=== PATIENT | female | born 1960 | race Caucasian/White ===

== ENCOUNTER 2023-07-01 11:59 | Outpatient (AMB) | payer OTHER, SELFPAY ==
--- NOTE | 2023-07-01 12:57 | MHC.OFFWIV ---
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 Pt states she has been feeling this way for one week. Patient Tobacco Use Status: Never used Tobacco Allergies No Known Allergies Allergy (Verified 07/01/23 13:02) Do you need a note to return to daycare/school/sports/work: No HPI HPI Comments History of Present Illness Details 63-year-old female presents for or upper respiratory symptoms. Patient is patient states that she is starting to feel better but has and lingering upper respiratory symptoms include cough and excessive mucus production. Denies any chest pain shortness of breath fever abdominal pain nausea or vomiting. PFSH Social History Patient Tobacco Use Status: Never used Tobacco Review of Systems Resp Reports cough and Reports excessive phlegm production Physical Exam Vital Signs: Last Vital Signs Temp 97.8 F 07/01/23 13:02 Pulse 92 07/01/23 13:02 BP 146/72 H 07/01/23 13:02 Pulse Ox 96 07/01/23 13:02 Oxygen Delivery Method Room Air 07/01/23 13:02 Const General: cooperative, no acute distress and alert Orientation/consciousness: patient oriented x3 Limitations: no limitations HEENT Head: Yes normal to inspection Ears: hearing grossly normal bilaterally and external ears normal General nose exam: Normal external nose present Eyes General: appearance normal, both eyes and all related structures Neck Neck: Yes normal visual inspection Chest Chest palpation & inspection: normal inspection of the chest Resp Effort & Inspection: normal respiratory effort, able to speak in complete sentences and no audible wheezes Auscultation: clear to auscultation bilaterally Cardio Rate: regular rate Rhythm: regular rhythm GI Inspection: Yes normal to inspection Palpation (GI): Soft to palpation and nontender Skin General skin exam: no rashes or lesions noted Neuro General: patient oriented x3 Psych Appearance: grossly normal Mental Status: mental status grossly normal Speech and movement: Normal speech and movement present Affect: normal affect Attitude: cooperative Thought process: Normal thought process present Thought content: Normal thought content present Assessment & Plan Assessment & Plan (1) URI (upper respiratory infection): Code(s): J06.9 - Acute upper respiratory infection, unspecified Qualifiers: URI type: unspecified URI Qualified Code(s): J06.9 - Acute upper respiratory infection, unspecified Plan: VSs. Exam unremarkable. at this time patient likely suffering from lingering viral wakes symptoms were recommend continued symptomatic treatment with cough suppressants saline rinses unified air decongestants and antihistamines of ischemia purchase [id number]. Should symptoms change or worsen recommend repeat examination. Discharge instructions, follow up and treatment are discussed with patient in my usual fashion. Alternatives in treatment are also discussed. The patient will return for worsening symptoms or as needed. Advised that any labs/imaging ordered will be followed up on and contact made if further treatment needed. Counseled that patient's condition may require further evaluation and/or treatment. Symptoms of concern for worsening disorder discussed in detail in my customary manner. Patient does verbalize understanding of the plan, there are no apparent barriers to communication. The patient is given the opportunity to ask questions and have them answered to his/her satisfaction Medications: New benzonatate 100 mg PO BID-TID PRN 10 caps 0RF cough Coding Level of Care Code New Pt Level 3 (85323) Diagnoses Upper respiratory tract infection, unspecified type J06.9 URI type: unspecified URI
[2023-07-01 13:02] VITALS: BP 146/72; PULSE 92; TEMP 36.6; O2SAT 96
== END 2023-07-01 13:17 | disposition home or self-care (01) ==
PROVIDERS: Visit Provider Physician Assistant
DX: J06.9 Acute upper respiratory infection, unspecified (principal)
CPT/HCPCS: 99203

== ENCOUNTER 2023-07-16 01:12 | Inpatient (IN) | payer OTHER, SELFPAY ==
[2023-07-16] VITALS (24 sets, daily range): BP systolic 131–248; BP diastolic 63–116; PULSE 61–122; RESP 14–20; TEMP 36.6–37.1; O2SAT 90–98; BMI 32.1
--- NOTE | ~2023-07-16 | CT_ITS ---
EXAMINATION: CT ABDOMEN AND PELVIS WITHOUT CONTRAST CLINICAL INFORMATION: Pain. COMPARISON: None available. TECHNIQUE: Multidetector volumetric imaging was performed from the superior aspect of the liver through the pubic symphysis. Sagittal and coronal reformatted images were obtained on the technologist's workstation. This CT examination was performed using dose optimization techniques as appropriate, variously including the following: *Automated exposure control *Adjustment of mA and/or kV according to patient size (this includes techniques or standardized protocols for targeted exams where dose is matched to indication/reason for exam; i.e. extremities or head) *Use of iterative reconstruction technique DLP: 917 mGy-cm FINDINGS: LUNG BASES: The visualized lung bases are unremarkable. LIVER, GALLBLADDER, AND BILIARY TREE: The liver is of diminished attenuation. No focal liver lesions are seen. There is no intrahepatic biliary duct dilatation. The gallbladder is unremarkable with no evidence of radiopaque gallstones, gallbladder wall thickening, or obvious pericholecystic inflammatory changes. PANCREAS: Unremarkable. SPLEEN: Unremarkable. ADRENAL GLANDS: Unremarkable. KIDNEYS AND URETERS: The kidneys are normal in size, shape, and attenuation. There is a 1 cm cyst upper pole right kidney. There is a nonobstructing 2 mm calculus lower pole left kidney. There is mild perinephric stranding. There is mild right hydronephrosis and proximal right hydroureter to the level of a 2 mm proximal to mid right ureteric calculus. BLADDER: Unremarkable. GASTROINTESTINAL TRACT: There are diverticula of the descending and the sigmoid colon without diverticulitis. ABDOMINAL WALL: There is a small umbilical hernia containing fat. LYMPH NODES: Normal. VASCULAR: Unremarkable. PELVIC VISCERA: Unremarkable. OSSEOUS STRUCTURES: There is diffuse thoracolumbar disc degenerative change. CT/CT abdomen pelvis wo IV con IMPRESSION: 2 mm proximal to mid right ureteric calculus with mild right hydroureter and hydronephrosis. Nonobstructing calculus lower pole left kidney. Fatty infiltration of the liver. Diverticula of the descending and sigmoid colon without diverticulitis. Fleischner guidelines were followed.
--- NOTE | ~2023-07-16 | FL_ITS ---
EXAMINATION: XR FLUOROSCOPY WITH IMAGES CLINICAL INFORMATION: Right-sided hydronephrosis. From right mid ureteral calculi. COMPARISON: None available. TECHNIQUE: Fluoroscopy Supervised By: Dr. Pio Levy. Fluoroscopy Time: 22.0 seconds. Cumulative Dose: 16.40 mGy. DAP: Not available. Images: 3. FINDINGS: On the first image there is a guidewire extending to the right kidney pelvis. Second and third image reveals a ureteral stent with its distal end in the bladder. The proximal and mid segment of the stent is not seen. FL/FL guidance in OR IMPRESSION: Fluoroscopy was provided to referring physician for right ureteral stent placement.
--- NOTE | 2023-07-16 01:47 | PC.NURSE ---
pt reports last kidney stone was 25 years ago. labs collected, IV placed. BP taken on both arms, >200 systolic. pt visibly in 10/10 pain.
[2023-07-16 01:49] LABS: MANUAL DIFF FLAG NO
[2023-07-16 01:51] LABS: Basophils Percent Auto 0.3 % (0-2); Eosinophils Percent Auto 0.2 % (0-4); Hematocrit 42.9 % (37.0-47.0); Hemoglobin 14.3 g/dl (12.0-16.0); Imm Gran Abs Auto 0.09 X10*3/uL (0.00-0.03); Imm Gran Pct Auto 0.7 % (0.0-0.4); Lymphocytes Absolute Auto 1.7 X10*3/uL (1.2-4.9); Lymphocytes Percent Auto 13.3 % (20-40); Mean Corpuscular HGB Conc 33.3 g/dl (31.0-35.0); Mean Corpuscular Hemoglobin 29.1 pg (27.0-33.0); Mean Corpuscular Volume 87.2 fL (80.0-98.0); Mean Platelet Volume 8.7 fL (9.4-12.3); Monocytes Absolute Auto 0.5 X10*3/uL (0.1-1.2); Monocytes Percent Auto 3.6 % (2-11); Neutrophils Absolute Auto 10.6 x10*3/uL (2.0-8.3); Neutrophils Percent Auto 81.9 % (45-73); Platelet Count 348 X10*3/uL (160-400); Red Blood Count 4.92 X10*6/uL (4.20-5.50); Red Cell Distribution Width 13.2 % (11.0-16.0); White Blood Count 12.9 X10*3/uL (4.8-10.8)
[2023-07-16] MEDS: Ketorolac Tromethamine 30 MG/ML VIAL 15 MG IVPUSH ×2 (01:59→03:04)
[2023-07-16] MEDS: ondansetron HCL 4 MG/2 ML VIAL IVPUSH ×3 (01:59→12:23)
[2023-07-16] MEDS: 0.9 % Sodium Chloride 1,000 ML 999 ML IV (02:05)
[2023-07-16 02:13] LABS: Alanine Aminotransferase 28 U/L (0-31); Albumin Level 4.5 g/dL (3.5-5.0); Alkaline Phosphatase 85 U/L (39-117); Anion Gap 15 (12-20); Aspartate Amino Transferase 22 U/L (5-31); Bilirubin Direct 0.2 mg/dL (0.0-0.5); Bilirubin Total 0.4 mg/dL (0.0-1.0); Blood Urea Nitrogen 17 mg/dL (9-16); Calcium 9.7 mg/dL (8.4-10.2); Carbon Dioxide 25 mmol/L (22-29); Chloride 105 mmol/L (96-108); Creatinine Clr Calc Pharmacy 56.2; Estimated Glomerular Filt Rate 39; Glucose Random 219 mg/dL (60-115); Lipase 19 U/L (8-78); Potassium 4.3 mmol/L (3.3-5.1); Sodium 141 mmol/L (135-145); Total Protein 8.9 g/dL (6.5-8.0)
--- NOTE | 2023-07-16 02:49 | ED_ITS ---
HPI - General Adult General Chief complaint: Back Pain/Injury Stated complaint: Kidney Stone Time Seen by Provider: 07/16/23 01:55 Source: patient Mode of arrival: ambulatory History of Present Illness HPI narrative: 63-year-old female without significant past medical history presents with acute onset of right flank pain associated with nausea and but denies any fevers or chills and states that it feels very similar to her prior kidney stone that she had on the left side. Related Data Previous Rx's Medication Instructions Recorded benzonatate 100 mg capsule 100 mg PO BID-TID PRN cough #10 07/01/23 caps Allergies Allergy/AdvReac Type Severity Reaction Status Date / Time No Known Allergies Allergy Verified 07/16/23 01:30 Review of Systems 2 Review of Systems: Pertinent positives and negatives as stated in HPI PMF Past Medical History Source: nursing notes reviewed Social History Social History Patient Tobacco Use Status: Never used Tobacco Smoked in Last 30 Days: No Use of substances other than those prescribed or required for medical reasons: No Advance Directives: No Advance Directives Information Provided: Yes Patient : No Physical Exam ED Vital Signs: Vital Signs - 24 hr 07/16/23 01:26 07/16/23 01:31 07/16/23 02:10 Temperature 97.9 F Pulse Rate 61 70 Respiratory Rate 20 16 Blood Pressure 227/116 H 248/99 H 209/95 H Pulse Oximetry 98 98 Oxygen Delivery Method Room Air 07/16/23 02:52 07/16/23 04:08 07/16/23 05:02 Temperature 98.0 F Pulse Rate 71 65 122 H Respiratory Rate 16 16 20 Blood Pressure 180/79 H 210/100 H 225/98 H Pulse Oximetry 95 90 L 92 Oxygen Delivery Method Room Air Room Air Room Air 07/16/23 05:58 07/16/23 06:10 Temperature 98.0 F Pulse Rate 64 68 Respiratory Rate 18 16 Blood Pressure 213/105 H 186/89 H Pulse Oximetry 93 94 Oxygen Delivery Method Room Air Room Air BMI result Body Mass Index 32.1 VITAL SIGNS: Reviewed. GENERAL: elevated BMI,Well developed, well nourished, in no acute distress. HEAD: Normocephalic/atraumatic EYES: PERRLA, EOMI EARS: Ext canals without abnormality NOSE: Nares patent bilateral OROPHARYNX: no oral lesions noted, posterior pharynx clear NECK: Supple, no adenopathy LUNGS: Normal breath sounds. No adventitious sounds or accessory muscle use. SpO2<98> CARDIOVASCULAR: Regular rate and rhythm without noted murmurs ABDOMEN: Soft, right flank tenderness to palpation, no CVA tenderness, non- distended with bowel sounds. MUSCULOSKELETAL: No tenderness, deformities, or effusions noted on gross inspection. EXTREMITIES: No cyanosis, clubbing or edema. SKIN: Inspection of the skin reveals no rashes NEUROLOGIC: Alert and oriented x 4. Strength and sensation to light touch were grossly intact x 4. Medications Administered Generic Name Dose Route Start Last Admin Trade Name Freq PRN Reason Stop Dose Admin Sodium Chloride 1,000 mls @ 75 mls/hr 07/16/23 06:00 07/16/23 06:29 Ns IVCONT 75 mls/hr .[id number] KARTHIK Administration Discontinued Medications Generic Name Dose Route Start Last Admin Trade Name Freq PRN Reason Stop Dose Admin Fentanyl 25 mcg 07/16/23 03:32 07/16/23 03:43 Fentanyl Citrate/Pf 100 Mcg/2 Ml Vial IVPUSH 07/16/23 03:33 25 mcg ONCE ONE Administration Protocol Sodium Chloride 1,000 mls @ 999 mls/hr 07/16/23 02:00 07/16/23 03:01 Ns IV 07/16/23 03:00 Infused .Q1H1M KARTHIK Infusion Ketorolac Tromethamine 15 mg 07/16/23 01:54 07/16/23 01:59 Ketorolac Tromethamine 30 Mg/Ml Vial IVPUSH 07/16/23 01:55 15 mg ONCE ONE Administration Ketorolac Tromethamine 15 mg 07/16/23 02:59 07/16/23 03:04 Ketorolac Tromethamine 30 Mg/Ml Vial IVPUSH 07/16/23 03:00 15 mg ONCE ONE Administration Labetalol HCl 2.5 mg 07/16/23 04:48 07/16/23 05:00 Labetalol Hcl 100 Mg/20 Ml Vial IVPUSH 07/16/23 04:49 2.5 mg ONCE ONE Administration Labetalol HCl 5 mg 07/16/23 05:40 07/16/23 05:45 Labetalol Hcl 100 Mg/20 Ml Vial IVPUSH 07/16/23 05:41 5 mg ONCE ONE Administration Ondansetron HCl 4 mg 07/16/23 01:54 07/16/23 01:59 Ondansetron Hcl 4 Mg/2 Ml Vial IVPUSH 07/16/23 01:55 4 mg ONCE ONE Administration Ondansetron HCl 4 mg 07/16/23 02:59 07/16/23 03:04 Ondansetron Hcl 4 Mg/2 Ml Vial IVPUSH 07/16/23 03:00 4 mg ONCE ONE Administration Medical Decision Making Medical Decision Making MDM Narrative: 63-year-old female with history and clinical presentation, DDX: renal colic, pyelonephritis, UTI, cholecystitis but doubt appendicitis/diverticulitis/obstruction INTERVENTION: IV fluids, ketorolac, Zofran I reviewed all investigations and hematologic indices are significant for leukocytosis and left shift but this seems to be a stress response as patient is afebrile, there is no thrombocytopenia or anemia. Chemistry indices do not demonstrate and JAMIL I and there are no electrolyte or liver enzyme derangements. Urinalysis negative for UTI and no hematuria. CT scan demonstrates a 2 mm ureteral stone at the right proximal to mid ureter with corresponding hydronephrosis and hydroureter. Her blood pressure has been somewhat elevated without symptoms and have treated it with a total of 7.5 mg of labetalol, pain control at this time. 0555: I discussed the case with Dr. Seuro and he accepts the patient for admission and plans to take the patient to the OR as an add on on the schedule today. Patient was made NPO and started on IV fluids at 75 cc an hour. Differential Diagnosis Differential Diagnoses: The differential diagnosis associated with the presentation includes please see the discussion above Admission/Observation Consideration of admission/observation: Escalation of care including admission/observation considered please see the discussion above Consult Healthcare Provider Management of the patient was discussed with: Medical Records Field Technician Please see the discussion above Lab Data [facility] Lab Attestation statement: I reviewed the patient's lab results. please see the discussion above 07/16/23 01:44 07/16/23 01:44 Labs: Lab Results 07/16/23 07/16/23 Range/Units 01:44 03:40 WBC 12.9 H (4.8-10.8) X10*3/uL RBC 4.92 (4.20-5.50) X10*6/uL Hgb 14.3 (12.0-16.0) g/dl Hct 42.9 (37.0-47.0) % MCV 87.2 (80.0-98.0) fL MCH 29.1 (27.0-33.0) pg MCHC 33.3 (31.0-35.0) g/dl RDW 13.2 (11.0-16.0) % Plt Count 348 (160-400) X10*3/uL MPV 8.7 L (9.4-12.3) fL Immature Gran % (Auto) 0.7 H (0.0-0.4) % Neut % (Auto) 81.9 H (45-73) % Lymph % (Auto) 13.3 L (20-40) % [place] % (Auto) 3.6 (2-11) % Eos % (Auto) 0.2 (0-4) % Baso % (Auto) 0.3 (0-2) % Lymph # (Auto) 1.7 (1.2-4.9) X10*3/uL [place] # (Auto) 0.5 (0.1-1.2) X10*3/uL Eos # (Auto) 0.0 (0.0-0.4) X10*3/uL Baso # (Auto) 0.0 (0.0-0.2) X10*3/uL Abs Immat Gran (auto) 0.09 H (0.00-0.03) X10*3/uL Absolute Neuts (auto) 10.6 H (2.0-8.3) x10*3/uL Absolute Nucleated RBC 0.000 (0.0-0.012) X10*3/uL Nucleated RBC % (auto) 0.0 (0.0-0.2) /100WBC Sodium 141 (135-145) mmol/L Potassium 4.3 (3.3-5.1) mmol/L Chloride 105 (96-108) mmol/L Carbon Dioxide 25 (22-29) mmol/L Anion Gap 15 (12-20) BUN 17 H (9-16) mg/dL Creatinine 1.38 (0.5-1.4) mg/dL Estim Creat Clear Calc 56.2 Estimated GFR 39 Random Glucose 219 H (60-115) mg/dL Calcium 9.7 (8.4-10.2) mg/dL Total Bilirubin 0.4 (0.0-1.0) mg/dL Direct Bilirubin 0.2 (0.0-0.5) mg/dL AST 22 (5-31) U/L ALT 28 (0-31) U/L Alkaline Phosphatase 85 (39-117) U/L Total Protein 8.9 H (6.5-8.0) g/dL Albumin 4.5 (3.5-5.0) g/dL Lipase 19 (8-78) U/L Urine Color Yellow Urine Appearance Clear Urine pH 5.5 (5.0-9.0) Ur Specific [place] 1.025 (1.005-1.025) Urine Protein 30 (1+) H (Neg-Trace) mg/dL Urine Glucose (UA) 100 H (Negative) mg/dL Urine Ketones 15 (Negative) mg/dL Urine Blood Trace H (Negative) Urine Nitrite Negative (Negative) Ur Leukocyte Esterase Negative (Negative) Urine RBC 0-2 (0-2) /HPF Urine WBC 0-5 (0-5) /HPF Ur Squamous Epith Cells 0-2 (0-2) /HPF Urine Bacteria None Seen (None Seen) Hyaline Casts 0-2 (0-2) /LPF Independent Interpretation I performed an independent interpretation of an: EKG Interpretation: normal sinus rhythm, HR- 67, no STEMI, HI / QRS are within normal limits and QTC is mildly prolonged at 490. Radiology Impression Discussion of test interpretation with radiology: I have reviewed the radiologist's reading. Radiologist Impression: please see the discussion above Critical Care Time Critical Care Time Critical Care Time: Yes Total Critical Care Time: 30 Attestation: I personally attest to this time spent taking care of the patient. Discharge Plan Discharge Clinical Impression: Renal colic, Ureterolithiasis, Hydronephrosis Patient Disposition: Admitted As Inpatient
[2023-07-16] MEDS: fentaNYL citrate/PF 100 MCG/2 ML VIAL 25 MCG IVPUSH (03:43)
--- NOTE | 2023-07-16 03:47 | PC.NURSE ---
pt states she thinks the stone moved with the IVF, back in 06/09 pain. pt given 15mg toradol with minimal relief 05/10. MD aware. pt then given fentanyl per MAR
[2023-07-16 03:50] LABS: Appearance Urine Clear; Color Urine Yellow; Glucose Urine UA 100 mg/dL (Negative); Leukocyte Esterase Urine Negative (Negative); Nitrite Urine Negative (Negative); PH 5.5 (5.0-9.0); Specific Gravity - Urine 1.025 (1.005-1.025); UMIC TRIGGER UACC YES; Urine Blood Trace (Negative); Urine Ketones 15 mg/dL (Negative); Urine Protein 30 (1+) mg/dL (Neg-Trace)
[2023-07-16 03:55] LABS: Bacteria Urine None Seen (None Seen); Hyaline Casts Urine 0-2 /LPF (0-2); RBC Urine 0-2 /HPF (0-2); Squamous Epithelial Cell Urine 0-2 /HPF (0-2); WBC Urine 0-5 /HPF (0-5)
--- NOTE | 2023-07-16 04:20 | PC.NURSE ---
pt reports pain in 3/10, resting comfortably in bed, O2 89% on RA, placed on 1.5L NC O2 up to 95%. provider aware
[2023-07-16] MEDS: Labetalol HCL 100 MG/20 ML VIAL IVPUSH ×2 (05:00→05:45)
--- NOTE | 2023-07-16 05:02 | PC.NURSE ---
pt's BP remains high, aware. pt medicated per MAR
--- NOTE | 2023-07-16 05:53 | PC.NURSE ---
p's BP continues to be elveated, aware. pt medicated per OCT. pt walked to the bathroom, pain remains 11/07
--- NOTE | 2023-07-16 06:04 | ECG_ITS ---
Test Reason : ABD PAIN Blood Pressure : / mmHG Vent. Rate : 067 BPM Atrial Rate : 067 BPM P-R Int : 158 ms QRS Dur : 072 ms QT Int : 464 ms P-R-T Axes : 005 -14 019 degrees QTc Int : 490 ms Normal sinus rhythm Prolonged QT Abnormal ECG No previous ECGs available Referred By: Gloria Hudson Electronically Signed By:GALE RAMIREZ MD
[2023-07-16] MEDS: 0.9 % Sodium Chloride 1,000 ML 75 ML IVCONT (06:29)
--- NOTE | 2023-07-16 06:29 | MHC.EDTECH ---
Patient ekg taken and was read by Provider ,Pt belonings list done ,covid swab collected and sent to lab ,Pt call valenzuela within reach .
[2023-07-16 07:13] LABS: COVID-19 Test Negative (Negative); IDNOW Serial# 6674DD1D
[2023-07-16] MEDS: HYDROmorphone HCl 1 MG/ML SYRINGE IVPUSH (08:46)
--- NOTE | 2023-07-16 08:55 | PC.NURSE ---
assumed care of pt at 0700. pt a&o x4, pleasant, calm, and cooperative. pt BP elelvated to 200s/90s. pt pending admission. YaneliB MALLY Stokes notified about BP. she sts pt is admitted to urology under Dr. Suero. Brittani notified and aware of pt BP, put in an order for pain med. pt medicated per oct and Dr. Suero aware. positive effect of pain med. BP down to 171/75 after medication administration. pt O2 did drop to 89% on room air. pt placed on 2L O2 NC and sating 94-96%.
--- NOTE | 2023-07-16 08:56 | PM.UROCN ---
History of Present Illness Consult details Consult date: 07/16/23 Narrative: cc: Right ureteric stone 63-year-old female Presents with right-sided flank pain Acute onset associated with nausea, Denies fevers, chills, hematuria Prior kidney stone left side 25 years ago Laboratories creatinine 1.4, calcium 9.7, WBC 12.9 Elevated blood pressure secondary to pain Imaging - CT - There is a nonobstructing 2 mm calculus lower pole left kidney. There is mild perinephric stranding. There is mild right hydronephrosis and proximal right hydroureter to the level of a 2 mm proximal to mid right ureteric calculus. Discussed intervention with patient Recommend retrograde with ureteroscopy and stent placement Will be organized for late this afternoon Review of Systems Constitutional: Constitutional: Reports as per HPI and Reports no additional constitutional complaints Cardiovascular: Cardiovascular: Reports as per HPI and Reports no additional cardiovascular complaints Respiratory: Respiratory: Reports as per HPI and Reports no additional respiratory complaints Gastrointestinal: Gastrointestinal: Reports as per HPI and Reports no additional gastrointestinal complaints Genitourinary: Genitourinary: Reports as per HPI Musculoskeletal: Musculoskeletal: Reports no additional musculoskeletal complaints and Reports as per HPI Neurologic: Reports system reviewed and no additional complaints, except as documented and Reports as per HPI [facility]LY [facility], [facility] Social History Social History Patient Tobacco Use Status: Never used Tobacco Smoked in Last 30 Days: No Use of substances other than those prescribed or required for medical reasons: No Advance Directives: No Advance Directives Information Provided: Yes Patient : No Meds Allergies Allergy/AdvReac Type Severity Reaction Status Date / Time No Known Allergies Allergy Verified 07/16/23 01:30 Active Medications: Current Medications Sodium Chloride (Ns) 1,000 mls @ 75 mls/hr IVCONT .[id number] KARTHIK Last Admin: 07/16/23 06:29 Dose: 75 mls/hr Home Medications Medication Instructions Recorded Confirmed Last Taken Type melatonin 3 mg tablet 6 mg PO BEDTIME PRN Insomnia 07/16/23 07/16/23 Unknown History Physical Exam Vital Signs: Vital Signs: Last Vital Signs Temp 98.0 F 07/16/23 06:10 Pulse 74 07/16/23 08:54 Resp 16 07/16/23 08:54 BP 171/75 H 07/16/23 08:54 Pulse Ox 93 07/16/23 08:54 O2 Del Method Room Air 07/16/23 08:54 BMI result Body Mass Index 32.1 Const: General: cooperative, healthy appearing, comfortable and no acute distress Orientation/consciousness: patient oriented x3 HEENT: Face and sinus: Yes normal facial exam Mouth: moist mucous membranes Neck: Neck: Yes normal visual inspection, Yes full ROM and Yes trachea midline Chest: Chest palpation & inspection: normal inspection of the chest Resp: Effort & Inspection: normal respiratory effort, able to speak in complete sentences and no respiratory distress GI: Inspection: Yes normal to inspection Back/Spine/Pelvis: Cervical Spine: normal cervical lordosis Thoracic/Lumbar Spine: thoracic and lumbar spine normal to inspection Skin: General skin exam: no rashes or lesions noted Neuro: General: patient oriented x3, tone normal and moves all extremities Extrem: General: Yes normal to inspection and Yes capillary refill normal Results Labs 07/16/23 01:44 07/16/23 01:44 Labs: Abnormal lab results 07/16/23 07/16/23 Range/Units 01:44 03:40 WBC 12.9 H (4.8-10.8) X10*3/uL MPV 8.7 L (9.4-12.3) fL Immature Gran % (Auto) 0.7 H (0.0-0.4) % Neut % (Auto) 81.9 H (45-73) % Lymph % (Auto) 13.3 L (20-40) % Abs Immat Gran (auto) 0.09 H (0.00-0.03) X10*3/uL Absolute Neuts (auto) 10.6 H (2.0-8.3) x10*3/uL BUN 17 H (9-16) mg/dL Random Glucose 219 H (60-115) mg/dL Total Protein 8.9 H (6.5-8.0) g/dL Urine Protein 30 (1+) H (Neg-Trace) mg/dL Urine Glucose (UA) 100 H (Negative) mg/dL Urine Blood Trace H (Negative) Short CBC 07/16/23 Range/Units 01:44 WBC 12.9 H (4.8-10.8) X10*3/uL Hgb 14.3 (12.0-16.0) g/dl Hct 42.9 (37.0-47.0) % Plt Count 348 (160-400) X10*3/uL BMP 07/16/23 01:44 Sodium 141 Potassium 4.3 Chloride 105 Carbon Dioxide 25 BUN 17 H Creatinine 1.38 Calcium 9.7 Liver Function 07/16/23 Range/Units 01:44 Total Bilirubin 0.4 (0.0-1.0) mg/dL Direct Bilirubin 0.2 (0.0-0.5) mg/dL AST 22 (5-31) U/L ALT 28 (0-31) U/L Alkaline Phosphatase 85 (39-117) U/L Albumin 4.5 (3.5-5.0) g/dL Urine 07/16/23 Range/Units 03:40 Urine Color Yellow Urine Appearance Clear Urine pH 5.5 (5.0-9.0) Ur Specific [place] 1.025 (1.005-1.025) Urine Protein 30 (1+) H (Neg-Trace) mg/dL Urine Glucose (UA) 100 H (Negative) mg/dL All other labs normal. Assessment and Plan (1) Hydronephrosis: Qualifiers: Hydronephrosis type: with ureteral calculous obstruction Qualified Code(s): N13.2 - Hydronephrosis with renal and ureteral calculous obstruction Status: Acute Plan Ureteroscopy We discussed the nature of the decision and reasonable alternatives for performing ureteroscopy. Options such as medical therapy were discussed. Interventions include chemical dissolution, ESWL, ureteroscopy with laser lithotripsy and stent placement, PCNL. The relative uncertainties and benefits related to each alternate procedure were adequately discussed. General surgical risks including, but not limited to - pain, bleeding, infection, myocardial infarction, pulmonary embolus, deep vein thrombosis and cerebrovascular accident which may result in further hospitalization were discussed. Full disclosure of the procedure as well as all major risks, benefits and complications were discussed including but not limited to damage to the urethra, bladder and kidney infection, damage to the ureter, stent migration or malposition, scarring to the renal pelvis, remnant stone fragments, subsequent stone passage with need for secondary procedures. The overall secondary procedure rate is approximately 10-15%. The overall clearance rate is approximately 90-95%. Success of the procedure in the short-term does not necessarily guarantee that long-term success will be maintained. Suitable follow up will need to be maintained. The patient showed understanding of discussion and wishes to proceed with - cystoscopy, retrograde, ureteroscopy, possible lithotripsy/stone basketing and stent on the right side Procedures Date of Service Date of Service: 07/16/23
--- NOTE | 2023-07-16 09:44 | PHA.MEDREC ---
Pharmacy Consult ? Medication Reconciliation Pharmacy has completed the medication reconciliation.PT STATES SHE IS ON ONLY MELATONIN AT BED FOR SLEEP.
--- NOTE | 2023-07-16 10:12 | PC.NURSE ---
NS increased to 125mls/hr per Dr. Pio brown order. Dr. Suero tigered to change order in oct.
--- NOTE | 2023-07-16 10:34 | PC.NURSE ---
pt BP significantly better. documented in chart. pt O2 titrated to 1L NC sating 94%. pt currently resting quietly on stretcher in no apparent distress, in and out of sleep. pt sts pain significantly better. call valenzuela within pt reach. rr even/unlabored. awaiting bed assignment.
--- NOTE | 2023-07-16 12:08 | PC.NURSE ---
RN-RN report called into overflow.
[2023-07-16] MEDS: HYDROmorphone HCl 1 MG/ML SYRINGE 0.5 MG IVPUSH (12:20)
[2023-07-16] MEDS: 0.9 % Sodium Chloride 1,000 ML 125 ML IVCONT ×2 (12:21→20:09)
[2023-07-16] MEDS: Ketorolac Tromethamine 30 MG/ML VIAL IVPUSH (15:01)
--- NOTE | 2023-07-16 16:18 | HO.ANESPROP2 ---
HPI - Anesthesia Eval Consult details Narrative: 63 F for cystoscopy functinal staus greater than 4 mets PMFSH Active Problems Active Problems: All Active Problems (Updated 07/16/23 @ 09:03 by Cam Suero MD) Hydronephrosis (Acute) Ureterolithiasis (Acute) Renal colic (Acute) Past Medical History Functional capacity: independent ambulation Family History Family history of problems with anesthesia: No Surgical History History of Problems with Anesthesia: No Social History Household Members: Spouse Housing: House Do you presently have visiting nurse or other home services: No Patient Tobacco Use Status: Never used Tobacco Meds Allergies Allergy/AdvReac Type Severity Reaction Status Date / Time No Known Allergies Allergy Verified 07/16/23 01:30 Active Medications: Current Medications Hydromorphone HCl (Hydromorphone Hcl 1 Mg/Ml Syringe) 0.5 mg IVPUSH Q4H PRN; Protocol PRN Reason: Pain, Severe (Pain Scale 7-10) Last Admin: 07/16/23 12:20 Dose: 0.5 mg Sodium Chloride (Ns) 1,000 mls @ 75 mls/hr IVCONT .[id number] [facility] Last Infusion: 07/16/23 12:26 Dose: 0 mls/hr Sodium Chloride (Ns) 1,000 mls @ 125 mls/hr IVCONT .Q8H [facility] Last Admin: 07/16/23 12:21 Dose: 125 mls/hr Ketorolac Tromethamine (Ketorolac Tromethamine 30 Mg/Ml Vial) 30 mg IVPUSH Q6H PRN PRN Reason: Pain, Moderate(Pain Scale 4-6) Last Admin: 07/16/23 15:01 Dose: 30 mg Ondansetron HCl (Ondansetron Hcl 4 Mg/2 Ml Vial) 4 mg IVPUSH Q8H PRN PRN Reason: Nausea and Vomiting Last Admin: 07/16/23 12:23 Dose: 4 mg Sodium Chloride (0.9 % Sodium Chloride Flush 3 Ml Syringe) 3 ml IVFLUSH QSHIFT [facility] Home Medications Medication Instructions Recorded Confirmed Last Taken Type melatonin 3 mg tablet 6 mg PO BEDTIME PRN Insomnia 07/16/23 07/16/23 Unknown History Exam Height,Weight and Vital Signs: Height 5 ft 11 in Weight 104.326 kg Last Vital Signs Temp 98.7 F 07/16/23 16:00 Pulse 72 07/16/23 16:00 Resp 18 07/16/23 16:00 BP 183/85 H 07/16/23 16:00 Pulse Ox 93 07/16/23 16:00 O2 Del Method Room Air 07/16/23 16:00 O2 Flow Rate 2 07/16/23 10:10 Pertinent Lab Results Pertinent Lab Results: Laboratory Tests 07/16/23 07/16/23 07/16/23 01:44 03:40 06:25 WBC 12.9 H RBC 4.92 Hgb 14.3 Hct 42.9 MCV 87.2 MCH 29.1 MCHC 33.3 RDW 13.2 Plt Count 348 MPV 8.7 L Immature Gran % (Auto) 0.7 H Neut % (Auto) 81.9 H Lymph % (Auto) 13.3 L [place] % (Auto) 3.6 Eos % (Auto) 0.2 Baso % (Auto) 0.3 Lymph # (Auto) 1.7 [place] # (Auto) 0.5 Eos # (Auto) 0.0 Baso # (Auto) 0.0 Abs Immat Gran (auto) 0.09 H Absolute Neuts (auto) 10.6 H Absolute Nucleated RBC 0.000 Nucleated RBC % (auto) 0.0 Sodium 141 Potassium 4.3 Chloride 105 Carbon Dioxide 25 Anion Gap 15 BUN 17 H Creatinine 1.38 Estim Creat Clear Calc 56.2 Estimated GFR 39 Random Glucose 219 H Calcium 9.7 Total Bilirubin 0.4 Direct Bilirubin 0.2 AST 22 ALT 28 Alkaline Phosphatase 85 Total Protein 8.9 H Albumin 4.5 Lipase 19 Urine Color Yellow Urine Appearance Clear Urine pH 5.5 Ur Specific [place] 1.025 Urine Protein 30 (1+) H Urine Glucose (UA) 100 H Urine Ketones 15 Urine Blood Trace H Urine Nitrite Negative Ur Leukocyte Esterase Negative Urine RBC 0-2 Urine WBC 0-5 Ur Squamous Epith Cells 0-2 Urine Bacteria None Seen Hyaline Casts 0-2 COVID-19 ([facility]) Negative COVID-19 Clin Com See Note Airway Mallampati Class: IV Loose/Missing/Broken Teeth: Yes Assessment and Plan Assessment Anesthesia Assessment: Anesthesia Plan Discussed and Chart Reviewed Final Anesthetic Review Family History of Problems with Anesthesia: No History of Problems with Anesthesia: No NPO: Yes ASA Class: III and Emergency Final Preanesthetic Review: Meds/Allgs Chart Reviewed, Consent Obtained/Reviewed and Anes Risks/Benef Reviewed Patient Risk: High Procedure Risk: Intermediate Anesthetic Plan Anesthetic Plan: GA and Agree w/ Assess. and Plan Disposition: Standard PACU
--- NOTE | 2023-07-16 16:31 | PC.NURSE ---
Pt arrive from main ED at ~12pm. A/Ox4. Ambulated to bed independently. NS running at 125/hr per orders. pt reporting 10/10 pain and nausea, dilaudid and zofran given with +effect. Pt napping on and off. Vitals taken at 1400 BP elevated 209/99, pt reporting 6/10 pain at this time. Dr. Suero notified and order obtained for toradol, given with some effect. Pt transferred to pre-op at ~1530, report given. Report also given with JORGE ALBERTO [facility] on [facility] as pt will go there after surgery
[2023-07-16] MEDS: levoFLOXacin/D5W 500 MG/100 ML PIGGYBACK 100 MG IV (17:13)
--- NOTE | 2023-07-16 18:02 | W.PM.OPN ---
Operative Note Operative Note Date of Service: 07/16/23 Narrative: PreOperative Diagnosis: right mid ureteric stone Post Operative Diagnosis: Right mid ureteric stone Procedure: - cystoscopy, right retrograde - right dilatation of ureteric orifice under fluoroscopy - right ureteroscopy,stone basketing - right stent placement Surgeon: Dr Cam Suero Anesthesia: General Indications for procedure: Right mid ureter stone with persistent nausea and pain Procedure: After informed consent was verified the patient was brought to the operating room and placed in a supine position. Anesthesia was administered per protocol. The patient was placed in a modified dorsal lithotomy position and prepped and draped in a sterile fashion. Safety pause time-out and side of surgery were confirmed. Images were available for review. Antibiotic administration confirmed. Patient is an xy female. Chace urethra posterior to normal position. Noted to be narrowed with mild urethral stricture. Unable to place 22 [place] cystoscope. Rigid ureteral scope was placed into bladder. No abnormality seen of prostatic urethra. The right ureteric orifice was cannulated and a Sensor guidewire placed. The Sensor guidewire was exchanged for an open-end catheter. Retrograde examination performed. Filling defect mid ureter. A Sensor guidewire was placed up to the level of the renal pelvis under fluoroscopy. A Browning dilator was placed over the Sensor guidewire and used to dilate the ureteric orifice under fluoroscopy. The dilator was removed. The semi rigid ureteral scope was placed alongside the Sensor guidewire. Stone was encountered. It attempt was made tip basket. The stone was treated up into the renal pelvis.. Using a 365 micro holmium laser fiber the A decision was made to place a ureteric stent. Based on the height of the patient a 6 Fr x variable stent was used. The string was removed from the stent prior to placement A 6 [place] by variable length cm double-J stent was placed into the renal pelvis and bladder under a combination of fluoroscopy and direct visualization. The symphisis pubis was used as a radiographic marker to release the stent and good coil was seen within the bladder confirming position The bladder was emptied. The patient tolerated the procedure well and was extubated in the operating room. They were transferred in stable condition to the recovery area. Pathology: Drains: Double J stent as described above
--- NOTE | 2023-07-16 18:06 | P.DS_ITS ---
DS: Providers Provider Date of Service: 07/16/23 Date of admission: 07/16/23 09:03 Primary care physician: Unknown Physician DS: Diagnosis Discharge Diagnosis (1) Hydronephrosis: Status: Acute (2) Ureterolithiasis: Status: Acute DS: Summary Hospital Course Hospital Course: Underwent intervention with ureteroscopy. Stent placed. Time spent discussing smoking cessation with patient: 3 to 10 minutes Status at Discharge Functional status at discharge: independent ambulation Overall status at discharge: patient is back to baseline Time Attestation Discharge coordination time: Less than 30 minutes Quality: Safe Use of Opioids Does Pt have an Active Cancer Diagnosis on the Problem List?: No Quality: Stroke Does the patient have a stroke diagnosis?: No Physical Exam Vital Signs: Vital Signs: Last Vital Signs Temp 98.8 F 07/16/23 17:57 Pulse 78 07/16/23 18:02 Resp 14 07/16/23 18:02 BP 132/63 07/16/23 18:02 Pulse Ox 98 07/16/23 18:02 O2 Del Method Simple Mask 07/16/23 18:02 O2 Flow Rate 6 07/16/23 18:02 BMI result Body Mass Index 32.1 DS: Data Data Completed and Pending Labs on day of discharge: Laboratory Results - last 24 hr 07/16/23 07/16/23 07/16/23 01:44 03:40 06:25 WBC 12.9 H RBC 4.92 Hgb 14.3 Hct 42.9 MCV 87.2 MCH 29.1 MCHC 33.3 RDW 13.2 Plt Count 348 MPV 8.7 L Immature Gran % (Auto) 0.7 H Neut % (Auto) 81.9 H Lymph % (Auto) 13.3 L [place] % (Auto) 3.6 Eos % (Auto) 0.2 Baso % (Auto) 0.3 Lymph # (Auto) 1.7 [place] # (Auto) 0.5 Eos # (Auto) 0.0 Baso # (Auto) 0.0 Abs Immat Gran (auto) 0.09 H Absolute Neuts (auto) 10.6 H Absolute Nucleated RBC 0.000 Nucleated RBC % (auto) 0.0 Sodium 141 Potassium 4.3 Chloride 105 Carbon Dioxide 25 Anion Gap 15 BUN 17 H Creatinine 1.38 Estim Creat Clear Calc 56.2 Estimated GFR 39 Random Glucose 219 H Calcium 9.7 Total Bilirubin 0.4 Direct Bilirubin 0.2 AST 22 ALT 28 Alkaline Phosphatase 85 Total Protein 8.9 H Albumin 4.5 Lipase 19 Urine Color Yellow Urine Appearance Clear Urine pH 5.5 Ur Specific [place] 1.025 Urine Protein 30 (1+) H Urine Glucose (UA) 100 H Urine Ketones 15 Urine Blood Trace H Urine Nitrite Negative Ur Leukocyte Esterase Negative Urine RBC 0-2 Urine WBC 0-5 Ur Squamous Epith Cells 0-2 Urine Bacteria None Seen Hyaline Casts 0-2 COVID-19 ([facility]) Negative COVID-19 Clin Com See Note Imaging CT scan - abdomen: Attestation: I personally reviewed and interpreted this imaging study as follows: Radiologist's impression: ITS Impressions Abdomen/Pelvis CT 07/16/23 02:23 IMPRESSION: 2 mm proximal to mid right ureteric calculus with mild right hydroureter and hydronephrosis. Nonobstructing calculus lower pole left kidney. Fatty infiltration of the liver. Diverticula of the descending and sigmoid colon without diverticulitis. Fleischner guidelines were followed. Discharge Plan Discharge Anticipated Discharge Date/Time: 07/16/23 18:08 Patient Disposition: Home, Self-Care Discharge Diagnosis: ureteric stone Referrals: Physician,Unknown J [Primary Care Provider] - 1 Week Discharge Medications: New tramadol 50 mg tablet 50 mg PO Q6H PRN (Reason: pain (scale score 1-3)) Qty: 8 0RF tamsulosin 0.4 mg capsule 0.4 mg PO BEDTIME 14 Days Qty: 14 0RF phenazopyridine [Pyridium] 100 mg tablet 100 mg PO TID PRN (Reason: Spasm) 4 Days Qty: 12 0RF No Action melatonin 3 mg Tablet 6 mg PO BEDTIME PRN (Reason: Insomnia) Discharge Orders: Discharge Order (Routine); Ordered 07/16/23 Ordered By: Cam Suero Diet: Advance to usual diet Activity on Discharge: As tolerated Stand Alone Forms: Patient Portal Discharge page Care Plan Goals: stones Health Concerns: stones Plan of Treatment: stones Assessment: stones Patient Instructions: Ureteroscopy (DC)
[2023-07-16] MEDS: Acetaminophen 1,000 MG/100 ML PIGGYBACK 400 MG IV (18:09)
[2023-07-16] MEDS: Phenazopyridine HCL 100 MG TABLET PO (18:42)
[2023-07-16] MEDS: Haloperidol Lactate 5 MG/ML VIAL 1 MG IVPUSH (19:31)
--- NOTE | 2023-07-16 19:54 | PC.NURSE ---
Pt states that she does not have all of her belongings. ED Overflow contacted and audioprosthologist aware.
[2023-07-17] VITALS: BP 158/84; PULSE 73; RESP 18; TEMP 36.7; O2SAT 98
[2023-07-17] MEDS: 0.9 % Sodium Chloride 1,000 ML 125 ML IVCONT (03:27)
[2023-07-17 03:29] VITALS: BP 168/74; PULSE 72; RESP 18; TEMP 36.6; O2SAT 95
[2023-07-17 08:00] VITALS: BP 176/92; PULSE 79; RESP 17; TEMP 36.6; O2SAT 92
--- NOTE | 2023-07-17 08:32 | MHC.CM.PN ---
pt dcd home no servies
--- NOTE | 2023-07-17 11:48 | HO.POSTANES ---
Post Anesthesia Evaluation Post Anesthesia Evaluation Date of Service: 07/17/23 Vital Signs: Vital Signs Temp Pulse Resp BP Pulse Ox O2 Del Method O2 Flow Rate 07/17/23 08:00 97.8 F 79 17 176/92 H 92 Room Air 07/17/23 03:29 97.8 F 72 18 168/74 H 95 Room Air 07/17/23 00:00 98.1 F 73 18 158/84 H 98 Nasal Cannula 2 Anesthesia: General Mental Status: Awake Pain Control: Satisfactory Nausea/Vomiting: None Hydration: Adequate Anesthesia-Related Issues: No Anes. Related Issues
== END 2023-07-17 10:28 | disposition home or self-care (01) | DRG 661 ==
LOC: HO.ED 06:08 → HO.EDOVER 09:08 → HO.S3 16:24
PROVIDERS: Admitting Provider Urology; Emergency Provider Student in an Organized Health Care Education/Training Program; Visit Provider Urology
PROC: 0T768DZ Dilation of Right Ureter with Intraluminal Device, Via Natural or Artificial Opening Endoscopic (ICD-10-PCS; CPT 52352; principal; 2023-07-16 16:30)
DX: N13.2 Hydronephrosis with renal and ureteral calculous obstruction (principal); Z20.822 Contact with and (suspected) exposure to COVID-19
CPT/HCPCS: 52352; 52332; 36415; 74176; 80048; 80076; 81001; 83690; 85025; 87635; 93005; 99285; C1758; C1769; C2617; J0131; J1170; J1630; J1885; J1920; J1956; J2250; J2371; J2405; J2704; J3010; Q9967

== ENCOUNTER → 2023-07-16 09:03 | Outpatient (BNV) | payer OTHER, SELFPAY | PROVIDERS: Admitting Provider Urology; Emergency Provider Student in an Organized Health Care Education/Training Program; Visit Provider Urology | DX: N13.2 Hydronephrosis with renal and ureteral calculous obstruction (principal) | CPT/HCPCS: 52332; 52352; 74420; 99235 ==

== ENCOUNTER 2023-07-30 14:48 | Outpatient (AMB) | payer OTHER, SELFPAY ==
--- NOTE | 2023-07-30 15:24 | A.OFFVIS_ITS ---
Intake Intake Visit Reasons: cysto/stent removal Intake Note: Patient presents for cysto/stent removal Urology Medications: tamsulosin Blood Thinner: none Uro-G Cystoscope Lot#[id number] Ex: 02/11/25 [facility]idential [facility] Facility Manager Required: No Accompanied by: Self / Same As Patient Allergies No Known Allergies Allergy (Verified 07/30/23 16:13) Medication List - Last Reconciled 07/30/23 by PAM Hays melatonin 6 mg PO BEDTIME PRN phenazopyridine (Pyridium) 100 mg PO TID PRN 4 days pyridoxine (vitamin B6) 100 mg PO DAILY 90 days tamsulosin 0.4 mg PO BEDTIME 14 days tramadol 50 mg PO Q6H PRN HPI HPI Comments History of Present Illness Details Fany is a very pleasant 63-year-old female patient. She has a past medical history of transgender with history of gender affirmation surgery. She presents to the office today for a follow-up of her nephrolithiasis. In discussion with the patient today she reports to be doing and feeling well. Of note, patient has previously underwent cystoscopy, right-sided retrograde, right dilatation of ureteric orifice under fluoroscopy, right ureteroscopy,stone basketing, right stent placement with Dr. Suero on 07/16/2023. In office cystoscopy was performed and right-sided ureteral stent was removed. Patient tolerated procedure well. When asked she reports a previous history of nephrolithiasis approximately 30 years ago however has not undergone surgical intervention regarding nephrolithiasis up until approximately 2 weeks ago. Discussed at length potential causes of nephrolithiasis. Discussed and stressed the importance of drinking plenty of water daily. She otherwise denies any bothersome urinary issues or concerns at this time. [facility] Social History Household Members: Spouse Housing: House Do you presently have visiting nurse or other home services: No Comment: unknown pt d/c to [facility] before 1900 Patient Tobacco Use Status: Never used Tobacco Review of Systems Const All systems reviewed & are unremarkable except as noted in HPI and below Physical Exam Const General: cooperative, healthy appearing, comfortable, no acute distress, well developed, alert and awake Nutritional Appearance: overweight Orientation/consciousness: patient oriented x3 Limitations: no limitations HEENT Head: Yes normal to inspection, Yes normocephalic and Yes atraumatic Ears: hearing grossly normal bilaterally Eyes General: appearance normal, both eyes and all related structures Neck Neck: Yes normal visual inspection and Yes trachea midline Chest Chest palpation & inspection: normal inspection of the chest Resp Effort & Inspection: normal respiratory effort and able to speak in complete sentences Cardio Rate: regular rate GI Inspection: Yes normal to inspection General: Yes no CVA tenderness Back/Spine/Pelvis Back: no CVA tenderness Skin General skin exam: no rashes or lesions noted Neuro General: patient oriented x3 Extrem General: Yes normal to inspection Psych Appearance: grossly normal and well kempt Mental Status: mental status grossly normal Speech and movement: Normal speech and movement present and Clear speech present Affect: normal affect Attitude: cooperative Thought process: Normal thought process present Thought content: Normal thought content present Insight: Good insight present (Psych) Judgement: Good judgement present (Psych) Office Procedures Cystoscopy Consent Discussed risk and benefit or proposed procedure with the patient. Information consent for procedure given to the patient. Discussed technical aspects, risks, benefits and alternatives in full. Addressed all of the patient's questions and concerns regarding the procedure. The patient demonstrated knowledge and understanding. They wish to proceed with this procedure. Preparation The patient was prepped in the usual manner. A clerical aide teacher was present and in the room. Genitalia was prepped with betadine solution in a sterile manner. Lidocaine Jelly 2% was placed into the urethra and 16Fr flexible Olympus cystoscope was inserted into the meatus after adequate lubrication. Procedure A well lubricated 16 Turkish cystoscope was placed No abnormality noted of urethra during placement Indwelling stent seen within bladder emerging from right ureteric orifices The stent was grasped with a 3 prong grasper and removed without difficulty The patient tolerated the procedure well [id number] with stent removal DISPOSABLE SCOPE URO-G FLEXIBLE SCOPE Procedure code (CPT) selection complete Office Meds lidocaine HCl 2 % mucosal jelly in applicator Performing Provider: PAM Hays [facility] [place] Administered by: Carmencita Guevara RN on 07/30/23 15:33 Dose Route Admin Location Dispensed Lot Number Expiration Date [facility] Vice President Of Software Engineering 10 mL intra-urethral 10 mL nitrofurantoin monohydrate/macrocrystals 100 mg capsule Performing Provider: PAM Hays Performing Location: [facility] Administered by: Carmencita Guevara RN on 07/30/23 15:33 Dose Route Admin Location Dispensed Lot Number Expiration Date NDC Vice President Of Software Engineering 100 mg PO 1 cap naproxen 500 mg tablet Performing Provider: BRUNA Hays Performing Location: [facility] Administered by: Carmencita Guevara RN on 07/30/23 15:33 Dose Route Admin Location Dispensed Lot Number Expiration Date NDC Vice President Of Software Engineering 500 mg PO 1 tab Results AMB Urinalysis, Automated UA Leukoctes 0 Tucker/uL Last Edit by [employer] [facility] on 07/30/23 15:41 UA Nitrite Negative Last Edit by [employer] [facility] on 07/30/23 15:41 UA Urobilinogen 0.2 mg/dL Last Edit by [employer] [facility] on 07/30/23 15:41 UA Protein 15 mg/dL Last Edit by [employer] [facility] on 07/30/23 15:41 UA pH 6.0 Last Edit by [employer] [facility] on 07/30/23 15:41 UA Blood 200 Selvin/uL Last Edit by [employer] [facility] on 07/30/23 15:41 UA Specific Wade 1.025 Last Edit by [employer] [facility] on 07/30/23 15:41 UA Ketone Negative Last Edit by [employer] [facility] on 07/30/23 15:41 UA Bilirubin 0 mg/dL Last Edit by [employer] on 07/30/23 15:41 UA Glucose 0 mg/dL Last Edit by Brandyce Bress on 07/30/23 15:41 Results Reviewed Results Reviewed: Laboratory Last Values Urine pH (Auto) 6.0 07/30/23 15:39 Specific Wade (Auto) 1.025 07/30/23 15:39 Urine Protein (Auto) 15 mg/dL 07/30/23 15:39 Glucose (UA)(Auto) 0 mg/dL 07/30/23 15:39 Urine Ketones (Auto) Negative 07/30/23 15:39 Urine Blood (Auto) 200 Selvin/uL 07/30/23 15:39 Urine Nitrite (Auto) Negative 07/30/23 15:39 Urine Bilirubin (Auto) 0 mg/dL 11/30/23 15:39 Urine Urobilinogen (Auto) 0.2 mg/dL 07/30/23 15:39 Leukocyte Esterase (Auto) 0 Tucker/uL 07/30/23 15:39 Assessment & Plan Assessment & Plan (1) Hydronephrosis: Code(s): N13.30 - Unspecified hydronephrosis Qualifiers: Hydronephrosis type: with ureteral calculous obstruction Qualified Code(s): N13.2 - Hydronephrosis with renal and ureteral calculous obstruction (2) Nephrolithiasis: Code(s): N20.0 - Calculus of kidney Plan In office urinalysis results reviewed with the patient today; as noted above. Cystoscopy performed and right-sided ureteral stent was removed without difficulty and the patient tolerated the procedure well. Discussed at length potential causes of nephrolithiasis. Discussed, stress, and encouraged on the importance of drinking plenty of water daily. Start vitamin B6 as discussed and prescribed. Discussed adding 1 oz of lemon juice to water daily. Will obtain renal ultrasound Discussed near future metabolic workup Follow-up in 3 months with imaging to be completed prior; or sooner with any issues, concerns, and or questions. Orders: Orders AMB Urinalysis Automated Today Z13.9 - Encounter for screening, unspecified AMB Cystoscopy Today N13.2 - Hydronephrosis with renal and ureteral calculous obstruction US retroperitoneal comp 2 Months N13.30 - Unspecified hydronephrosis, N20.0 - Calculus of kidney Medications: New pyridoxine (vitamin B6) 100 mg PO DAILY 90 tabs 1RF 90 days Patient Instructions: The patient had an opportunity to ask questions regarding the treatment plan. All questions were answered. Physical exam, labs, and imaging were discussed and reviewed in detail. As well as risks, benefits, and discussion of treatment choices. No major barriers to understanding were identified. The patient expressed understanding and agreement with the above treatment plan. The patient was made aware they should contact our office by phone for worsening of their current condition, the appearance of new symptoms, or with any questions or concerns. Compliance is encouraged with any medications and follow up testing that is ordered. It is a privilege to be allowed the opportunity to participate in? your urological care.? Again, if you have any questions or concerns If you have any questions or concerns please do not hesitate to contact me. The office is [phone]. This note is constructed using voice recognition software. While every effort has been made to ensure accuracy semiconductor processing group leader errors may have been included. Yours sincerely, HOANG Hays-GORDON Coding Level of Care Code Est Pt Level 4 (01083) Diagnoses Hydronephrosis with urinary obstruction due to ureteral calculus N13.2 Hydronephrosis type: with ureteral calculous obstruction Nephrolithiasis N20.0 CPT Codes Cystoscopy - CPT: 13930-[id number] with stent removal ([id number])
== END 2023-07-30 16:11 | disposition home or self-care (01) ==
PROVIDERS: Visit Provider Nurse Practitioner Family
DX: N13.2 Hydronephrosis with renal and ureteral calculous obstruction (principal); Z96.0 Presence of urogenital implants
CPT/HCPCS: 52310

== ENCOUNTER → 2023-07-30 14:48 | Outpatient (BNVA) | payer OTHER, SELFPAY | PROVIDERS: Visit Provider Nurse Practitioner Family | DX: Z48.816 Encounter for surgical aftercare following surgery on the genitourinary system (principal) | CPT/HCPCS: 52310; 81003 ==

== ENCOUNTER 2023-09-29 09:55 | Outpatient (REF) | payer OTHER, SELFPAY ==
--- NOTE | ~2023-09-29 | US_ITS ---
EXAMINATION: US RETROPERITONEAL COMPLETE (RENAL) CLINICAL INFORMATION: Unspecified hydronephrosis. COMPARISON: CT abdomen and pelvis without contrast 07/16/2023. TECHNIQUE: Real-time imaging of the kidneys and bladder. Limited visualization due to bowel gas. FINDINGS: RIGHT KIDNEY: 12.5 x 6.6 x 5.1 cm (SAG x AP x TRV). No hydronephrosis. No renal calculi. Renal cortical thickness is normal. Limited visualization. LEFT KIDNEY: 11.9 x 6.4 x 4.7 cm (SAG x AP x TRV). No hydronephrosis. No renal calculi. Renal cortical thickness is normal. Limited visualization. Midpole 0.8 cm cyst redemonstrated. There is no indication for follow-up imaging. BLADDER: Well distended. Bilateral ureteral jets are demonstrated. Prevoid bladder volume is 164 mL. Postvoid bladder volume is 7.7 mL. US/US retroperitoneal comp IMPRESSION: No hydronephrosis. No renal calculi.
== END 2023-09-29 09:56 | disposition home or self-care (01) ==
LOC: HO.US 09:55
PROVIDERS: Visit Provider Nurse Practitioner Family
DX: N20.0 Calculus of kidney (principal); N13.30 Unspecified hydronephrosis
CPT/HCPCS: 76770

== ENCOUNTER 2023-10-27 10:34 | Outpatient (AMB) | payer OTHER, SELFPAY ==
--- NOTE | 2023-10-27 10:59 | MHC.OFFVIS ---
Intake Intake Visit Reasons: 3m/US(set) Intake Note: Patient presents for follow up Hydronephrosis, Nephrolithiasis and Ultrasound Results Imagin09/29/23 Urology Medications: Vitamin B6 Blood Thinner: none Patient stated she is taking Vit B6 ocassionally only Manager Test Required: No Accompanied by: Self / Same As Patient Allergies No Known Allergies Allergy (Verified 10/27/23 11:32) Medication List - Last Reconciled 10/27/23 by PAM Hays melatonin 6 mg PO BEDTIME PRN HPI HPI Comments History of Present Illness Details Fany is a very pleasant 63-year-old female patient. She has a past medical history of transgender with history of gender affirmation surgery. She presents to the office today for a follow-up of her nephrolithiasis. Recent renal imaging results reviewed with the patient today. Bilateral kidneys with no calculi, lesions, and or hydronephrosis. Mid pole 0.8 cm cyst redemonstrated. There is no indication for follow-up imaging. The bladder is well distended. Bladder ureteral jets are demonstrated. Pre void bladder volume is approximately 165 mL. Postvoid bladder volume is approximately 10 mL. In discussion with the patient today she reports to be doing and feeling well. Of note, patient has previously underwent cystoscopy, right-sided retrograde, right dilatation of ureteric orifice under fluoroscopy, right ureteroscopy,stone basketing, right stent placement with Dr. Suero on 07/16/2023. In office cystoscopy was performed and right-sided ureteral stent was removed on 07/30. She reports a previous history of nephrolithiasis approximately 30 years ago however has not undergone surgical intervention regarding nephrolithiasis up until last year with Dr. Suero. Discussed at length potential causes of nephrolithiasis. Discussed and stressed the importance of drinking plenty of water daily. In office urinalysis results reviewed with the patient today. She otherwise denies any bothersome urinary issues or concerns at this time. [facility] Social History Household Members: Spouse Housing: House Do you presently have visiting nurse or other home services: No Comment: unknown pt d/c to [facility] before 1900 Patient Tobacco Use Status: Never used Tobacco Review of Systems Const All systems reviewed & are unremarkable except as noted in HPI and below Physical Exam Const General: cooperative, healthy appearing, comfortable, no acute distress, well developed, alert and awake Nutritional Appearance: overweight Orientation/consciousness: patient oriented x3 Limitations: no limitations HEENT Head: Yes normal to inspection, Yes normocephalic and Yes atraumatic Ears: hearing grossly normal bilaterally Eyes General: appearance normal, both eyes and all related structures Neck Neck: Yes normal visual inspection and Yes trachea midline Chest Chest palpation & inspection: normal inspection of the chest Resp Effort & Inspection: normal respiratory effort and able to speak in complete sentences Cardio Rate: regular rate GI Inspection: Yes normal to inspection General: Yes no CVA tenderness Back/Spine/Pelvis Back: no CVA tenderness Skin General skin exam: no rashes or lesions noted Neuro General: patient oriented x3 Extrem General: Yes normal to inspection Psych Appearance: grossly normal and well kempt Mental Status: mental status grossly normal Speech and movement: Normal speech and movement present and Clear speech present Affect: normal affect Attitude: cooperative Thought process: Normal thought process present Thought content: Normal thought content present Insight: Good insight present (Psych) Judgement: Good judgement present (Psych) Results AMB Urinalysis, Automated UA Leukoctes 0 Tucker/uL Last Edit by Laura Jarrell [facility] on 10/27/23 11:06 UA Nitrite Negative Last Edit by Laura Jarrell [facility] on 10/27/23 11:06 UA Urobilinogen 0.2 mg/dL Last Edit by Laura Jarrell [facility] on 10/27/23 11:06 UA Protein 15 mg/dL Last Edit by Laura Jarrell [facility] on 10/27/23 11:06 UA pH 6.0 Last Edit by Laura Jarrell [facility] on 10/27/23 11:06 UA Blood 0 Selvin/uL Last Edit by Laura Jarrell [facility] on 10/27/23 11:06 UA Specific Munger 1.030 Last Edit by Laura Jarrell [facility] on 10/27/23 11:06 UA Ketone Negative Last Edit by Laura Jarrell [facility] on 10/27/23 11:06 UA Bilirubin 0 mg/dL Last Edit by Laura Jarrell [facility] on 10/27/23 11:06 UA Glucose 0 mg/dL Last Edit by Laura Jarrell [facility] on 10/27/23 11:06 Results Reviewed Results Reviewed: Laboratory Last Values Urine pH (Auto) 6.0 10/27/23 11:01 Specific Munger (Auto) 1.030 10/27/23 11:01 Urine Protein (Auto) 15 mg/dL 10/27/23 11:01 Glucose (UA)(Auto) 0 mg/dL 10/27/23 11:01 Urine Ketones (Auto) Negative 10/27/23 11:01 Urine Blood (Auto) 0 Selvin/uL 10/27/23 11:01 Urine Nitrite (Auto) Negative 10/27/23 11:01 Urine Bilirubin (Auto) 0 mg/dL 10/27/23 11:01 Urine Urobilinogen (Auto) 0.2 mg/dL 10/27/23 11:01 Leukocyte Esterase (Auto) 0 Tucker/uL 10/27/23 11:01 Date of Service: 09/29/23 EXAMINATION: US RETROPERITONEAL COMPLETE (RENAL) FINDINGS: RIGHT KIDNEY: 12.5 x 6.6 x 5.1 cm (SAG x AP x TRV). No hydronephrosis. No renal calculi. Renal cortical thickness is normal. Limited visualization. LEFT KIDNEY: 11.9 x 6.4 x 4.7 cm (SAG x AP x TRV). No hydronephrosis. No renal calculi. Renal cortical thickness is normal. Limited visualization. Midpole 0.8 cm cyst redemonstrated. There is no indication for follow-up imaging. BLADDER: Well distended. Bilateral ureteral jets are demonstrated. Prevoid bladder volume is 164 mL. Postvoid bladder volume is 7.7 mL. IMPRESSION: No hydronephrosis. No renal calculi. Assessment & Plan Assessment & Plan (1) Nephrolithiasis: Code(s): N20.0 - Calculus of kidney (2) Renal cyst: Code(s): N28.1 - Cyst of kidney, acquired Plan In office urinalysis results reviewed with the patient today; as noted above. Recent retroperitoneal ultrasound results reviewed with the patient today; as noted above. Discussed at length potential causes of nephrolithiasis. Discussed further metabolic workup with 24 hour urine collection and labs. Patient currently denies any bothersome urinary issues or concerns. She reports be happy with current voiding parameters. Discussed, educated, and stressed the importance of drinking plenty of water daily. Continue adding 1 oz of lemon juice to water daily. Will obtain renal ultrasound in 6 months. Follow-up in 6 months with imaging to be completed prior; or sooner with any issues, concerns, and or questions. Orders: Orders AMB Urinalysis Automated Today R33.9 - Retention of urine, unspecified US renal BI 6 Months N20.0 - Calculus of kidney Patient Instructions: The patient had an opportunity to ask questions regarding the treatment plan. All questions were answered. Physical exam, labs, and imaging were discussed and reviewed in detail. As well as risks, benefits, and discussion of treatment choices. No major barriers to understanding were identified. The patient expressed understanding and agreement with the above treatment plan. The patient was made aware they should contact our office by phone for worsening of their current condition, the appearance of new symptoms, or with any questions or concerns. Compliance is encouraged with any medications and follow up testing that is ordered. It is a privilege to be allowed the opportunity to participate in? your urological care.? Again, if you have any questions or concerns If you have any questions or concerns please do not hesitate to contact me. The office is [phone]. This note is constructed using voice recognition software. While every effort has been made to ensure accuracy bobcat driver/labor errors may have been included. Yours sincerely, PAM Hays Coding Level of Care Code Est Pt Level 3 (45115) Diagnoses Nephrolithiasis N20.0 Renal cyst N28.1
== END 2023-10-27 11:34 | disposition home or self-care (01) ==
PROVIDERS: Visit Provider Nurse Practitioner Family
DX: N20.0 Calculus of kidney (principal); N28.1 Cyst of kidney, acquired
CPT/HCPCS: 99213

== ENCOUNTER → 2023-10-27 10:34 | Outpatient (BNVA) | payer OTHER, SELFPAY | PROVIDERS: Visit Provider Nurse Practitioner Family | DX: N28.1 Cyst of kidney, acquired (principal); Z87.442 Personal history of urinary calculi | CPT/HCPCS: 81003 ==